=== PATIENT | male | born 1985 | race Caucasian/White ===

== ENCOUNTER 2017-04-02 17:05 | Emergency (ER) | payer OTHER ==
--- NOTE | 2017-04-02 17:12 | EDPHY ---
H & P Stated Complaint: Stung on chest by ?yellow jacket; mouth feels dry and hard to swallow HPI/ROS: CHIEF COMPLAINT: Sensation of throat closing after being stung HISTORY OF PRESENT ILLNESS: This is a 32-year-old male who was stung by a flying insect within the last 45 minutes. He was stung in the upper right chest. He was immediately aware of the sting. At some point thereafter a began to have a sensation that his throat was closing over. He took 2 Benadryl. He has been stung once before, in the mouth, and did have throat swelling at that time. He does not carry an EpiPen. He does not feel lightheaded or dizzy. He is not having difficulty breathing. No itching or rash. REVIEW OF SYSTEMS: A ten point review of systems was performed and is negative with the exception of the items mentioned in the HPI. - Personal History Current Tetanus Diphtheria and Acellular Pertussis (TDAP): Yes - Medical/Surgical History Other PMH: adhd. depression - Social History Smoking Status: Current every day smoker Alcohol Use: Occasionally Drug Use: None - Physical Exam Exam: General Appearance: Alert. Vital signs reviewed. Heart rate 106, blood pressure 154/80. Eyes: Pupils equal and round, no conjunctival injection, no discharge. Anicteric. ENT, Mouth: Mucous membranes are moist, no oropharyngeal erythema or edema. Neck: No lymphadenopathy, supple. Trachea midline. Respiratory: Lungs are clear to auscultation; no wheezes, rales, or rhonchi. Cardiovascular: Regular rate and rhythm; no murmur, rub, or gallop. Gastrointestinal: Abdomen is soft and nontender, no masses or organomegaly, bowel sounds normal. Skin: Warm and dry, no rashes on exposed skin, normal color. There is a 3 x 3 cm area of erythema on his right upper anterior thorax--no obvious sting or sting her seen. No urticaria. Extremities: No lower extremity edema, no calf tenderness or swelling. Neurological: Alert and oriented. Moving all four extremities easily and equally. Psychiatric: Normal affect. Constitutional: Initial Vital Signs Heart Rate 106 H 04/02/17 17:07 Respiratory Rate 18 04/02/17 17:07 Blood Pressure 154/83 H 04/02/17 17:07 O2 Sat (%) 97 04/02/17 17:07 O2 Delivery Mode Room Air Allergies/Adverse Reactions: Penicillins Allergy (Verified 04/02/17 17:06) Home Medications: Medication Instructions Recorded Amphet Asp and D/Amphet [Adderall 10 mg PO 04/02/17 10 MG (*)] EPINEPHrine [Epipen 0.3 MG] 0.3 mg IM ONCE #2 syr 04/02/17 Escitalopram Oxalate [Lexapro] 10 mg PO 04/02/17 predniSONE 20 mg PO BID #3 tablet 04/02/17 Medical Decision Making ED Course/Re-evaluation: Sensation of throat closing after being stung. He has taken Benadryl. He will be given Pepcid, prednisone, and epinephrine. He is hemodynamically stable. No respiratory distress. No visible oral pharyngeal swelling. The patient re-evaluated at 6:00 p.m.. He is feeling significantly better. Has received Pepcid, prednisone, and IM epi. On reexamination is lungs are clear, heart is regular rate and rhythm, oropharynx is without swelling. He is swallowing easily. He will be observed for a bit longer and discharged home with an EpiPen and a prescription for prednisone to take for the next couple of days. Differential Diagnosis: Considered a differential diagnosis that includes but is not limited to anaphylaxis, urticaria, allergic reaction, and local reaction to sting. - Data Points Medications Given: Discontinued Medications Epinephrine HCl (Epinephrine) 0.3 mg IM EDNOW ONE Stop: 04/02/17 17:16 Last Admin: 04/02/17 17:35 Dose: 0.3 mg Famotidine (Pepcid) 40 mg PO EDNOW ONE Stop: 04/02/17 17:16 Last Admin: 04/02/17 17:33 Dose: 40 mg Prednisone (Prednisone) 60 mg PO EDNOW ONE Stop: 04/02/17 17:16 Last Admin: 04/02/17 17:33 Dose: 60 mg Departure - Departure Disposition: Home, Routine, Self-Care Condition: Good Instructions: Insect Bite or Sting (ED), Anaphylaxis (ED) Additional Instructions: Take the prednisone 20 mg twice daily for the next two days. Take benadryl every 8 hours. Buy some pepcid or tagamet to take for the two days that you are on prednisone--this medicine has antihistamine properties and will also help protect your stomach while you take prednisone. Referrals: Jayleen Tello MD [Medical Doctor] - As per Instructions Prescriptions: EPINEPHrine [Epipen 0.3 MG] 0.3 mg IM ONCE #2 syr predniSONE 20 mg PO BID #3 tablet
[2017-04-02] MEDS ORDERED: FAMOTIDINE 20 MG TAB PO ONE (17:15)
[2017-04-02] MEDS ORDERED: predniSONE 20 MG TAB PO ONE (17:15)
[2017-04-02 18:53] VITALS: BP 138/68; PULSE 67; RESP 15; TEMP 98.1; O2SAT 93
== END 2017-04-02 18:52 | disposition home or self-care (01) ==
DX: S20.96XA Insect bite (nonvenomous) of unspecified parts of thorax, initial encounter (principal); T78.40XA Allergy, unspecified, initial encounter; F17.200 Nicotine dependence, unspecified, uncomplicated; W57.XXXA Bitten or stung by nonvenomous insect and other nonvenomous arthropods, initial encounter
CPT/HCPCS: J0171

== ENCOUNTER 2019-01-28 20:09 | Emergency (ER) | payer OTHER ==
[2019-01-28 20:16] VITALS: BP 129/89
[2019-01-28] MEDS ORDERED: DOXYCYCLINE HYCLATE 100 MG CAP/TAB PO ONE (20:55)
--- NOTE | 2019-01-28 21:48 | EDPHY ---
H & P Time Seen by Provider: 01/28/19 20:26 HPI/ROS: Chief complaint: Dog bite to right hand History of present illness: This is a 33-year-old male who presents to the emergency department for evaluation of dog bite to his right hand. States he was playing with his dog, his dog bit his hand. His dog is reported as healthy and up-to-date on immunizations. Patient states he is healthy and up-to-date on his tetanus. He has noted multiple puncture wounds to the right hand. Minimal pain. Good hemostasis. No report of abnormal coolness or paresthesias in the hand. No difficulty moving the hand. Smoking Status: Current every day smoker Physical Exam: General: Alert, nontoxic. Skin: Patient has a 1.5 cm laceration to the palmar surface of his right hand, a small puncture wound to the flexor surface of his pointer finger and a puncture wound to the extensor surface of his puncture wound. Exploration does not reveal foreign bodies. Tendons are identified, I do not appreciate significant damage. Musculoskeletal: Patient is flexing and extending all digits in the right hand at the level of the the DIP, PIP and MCP joints well. Moving the wrist well. Vascular: Radial pulse 2 +. Capillary refill brisk in all digits. Neurologic: Sensation intact using light touch and two-point discrimination. Constitutional: Initial Vital Signs Temperature (C) 36.5 C 01/28/19 20:15 Heart Rate 86 01/28/19 20:15 Respiratory Rate 18 01/28/19 20:15 Blood Pressure 129/89 H 01/28/19 20:15 O2 Sat (%) 97 01/28/19 20:15 O2 Delivery Mode Room Air Allergies/Adverse Reactions: erythromycin base Allergy (Verified 01/28/19 20:14) Penicillins Allergy (Verified 04/02/17 17:06) Home Medications: Medication Instructions Recorded Amphet Asp and D/Amphet [Adderall 10 mg PO 04/02/17 10 MG (*)] EPINEPHrine [Epipen 0.3 MG] 0.3 mg IM ONCE #2 syr 04/02/17 Escitalopram Oxalate [Lexapro] 10 mg PO 04/02/17 Doxycycline Hyclate [Vibramycin 100 mg PO BID 7 Days cap 01/28/19 100 MG (*)] MDM/Departure - MDM Imaging Results: Imaging Impressions Hand X-Ray 01/28/19 20:55 Impression: No acute osseous findings. Imaging: I viewed and interpreted images myself Procedures: Procedure: Laceration repair. Verbal consent was obtained from the patient. The 1.5 cm laceration on the right hand was anesthetized in the usual fashion. The wound was irrigated, draped and explored to its base with a gloved finger. There were no deep structures involved. No tendon injury was identified. The wound was repaired with 5 0 Prolene, 3 simple interrupted sutures with loose approximation. The wound repair was simple. The procedure was performed by myself. Medications Given: Discontinued Medications Doxycycline Hyclate (Doxycycline Hyclate) 100 mg PO EDNOW ONE PRN Reason: Protocol Stop: 01/28/19 20:56 Last Admin: 01/28/19 20:59 Dose: 100 mg ED Course/Re-evaluation: Patient seen under the supervision of my secondary supervising physician Dr. Keely Gallo. Patient presents to the emergency department for a dog bite to his right hand. His right hand appears to be neurovascularly intact. He appears to have good musculoskeletal control. X-rays negative. He does have a gaping wound on the palmar surface that I feel needs to be approximated. This is performed. The other wounds are small puncture wounds, I have discussed allowing them to heal by secondary intention. He states he cannot take any penicillin medications. I will start him on doxycycline. Good wound care is discussed. He is to follow up with a primary care doctor for recheck. Return precautions are given. Differential Diagnosis: Included but not limited to puncture wounds, deep structure injury, foreign body contamination - Depart Disposition: Home, Routine, Self-Care Clinical Impression: Dog bite of right hand Qualifiers: Encounter type: initial encounter Qualified Code(s): S61.451A - Open bite of right hand, initial encounter; W54.0XXA - Bitten by dog, initial encounter; W54.0XXA - Bitten by dog, initial encounter Condition: Good Instructions: Animal Bite (ED), Acute Wounds (ED) Additional Instructions: Follow-up with a primary care doctor or hand doctor for recheck Take antibiotics as prescribed until finished Stitches are to be removed in 7 days If symptoms worsen or new symptoms develop return to the emergency room for recheck Prescriptions: Doxycycline Hyclate [Vibramycin 100 MG (*)] 100 mg PO BID 7 Days cap Referrals: NONE *PRIMARY CARE P,. [Primary Care Provider] - As per Instructions [facility],. [Clinic] - As per Instructions Erik Rivera MD [Medical Doctor] - As per Instructions
== END 2019-01-28 22:31 | disposition home or self-care (01) ==
PROC: 0HQFXZZ Repair Right Hand Skin, External Approach (ICD-10-PCS; principal; 2019-01-28)
DX: S61.411A Laceration without foreign body of right hand, initial encounter (principal); W54.0XXA Bitten by dog, initial encounter; Y93.K9 Activity, other involving animal care